=== PATIENT | female | born 1970 | race Caucasian/White ===

== ENCOUNTER → 2016-08-01 | Outpatient (CLI) | payer MEDICARE ==
--- NOTE | 2016-08-01 15:31 | Diagnostic Imaging Report ---
Indication: Back pain Technique: MRI examination of the Lumbar spine was performed in a 1.5 Susan magnet. Sequences obtained include sagittal and axial T1 and T2 fast spin echo, and sagittal STIR. No IV gadolinium was given Comparison: none Findings: Conus medullaris is seen at T12-L1 and is normal in appearance. There is desiccation and narrowing of the intervertebral discs at L1-2, L2-3, L3-4, L4-5. Minimal vertebral endplate spurs are noted as well. Mild hypertrophy of the facets noted within the lumbar spine. There is no central, lateral recess or neural foraminal stenosis. Bone marrow signal is within normal limits. Alignment is normal. Impression: Degenerative disc disease and facet arthropathy as described above.
== END | disposition home or self-care (01) ==
LOC: MRI 13:32
DX: M54.9 Dorsalgia, unspecified (principal); M51.36 Other intervertebral disc degeneration, lumbar region
CPT/HCPCS: 72148